=== PATIENT | female | born 1995 | race Caucasian/White ===

== ENCOUNTER 2019-03-15 09:42 | Emergency (ER) | payer OTHER, SELFPAY ==
[2019-03-15 09:50] VITALS: BP 130/83; PULSE 83; RESP 16; TEMP 36.3; O2SAT 100; BMI 23.1
--- NOTE | 2019-03-15 09:55 | ED.URI ---
HPI - URI/Sore Throat General Chief Complaint: Upper Respiratory Symptoms Stated Complaint: cold for a week,flu symptoms Time Seen by Provider: 03/15/19 09:48 Source: patient Mode of arrival: Ambulatory Limitations: no limitations History of Present Illness HPI Narrative: Patient is a 23-year-old female who is currently deployed in [place]. She states that on February 28 she flew is from [facility] to [facility] for couple days then flew to [place] as she at that time had some upper respiratory is like symptoms. She had over the relatively quickly. However over the last 8 days she started having facial pain of postnasal drip she does still have a mild cough. No fevers. Her symptoms do not seem to be improving. MD Complaint: nasal congestion and sinus pain Onset (ago): day(s) (8) Duration: intermittent Severity: mild Relieving factors: nothing Exacerbating factors: nothing Description of mucous: clear Related Data Allergies Allergy/AdvReac Type Severity Reaction Status Date / Time No Known Drug Allergies Allergy Verified 03/15/19 10:02 Review of Systems Review of Systems Narrative: GENERAL: Denies chills, fatigue, malaise, fever, sweats, travel HEENT: See HPI RESPIRATORY:+ cough see HPI Denies dyspnea,wheezing, hemoptysis, sputum. CARDIOVASCULAR: Denies chest pain, palpitations, orthopnea, edema GASTROINTESTINAL: Denies nausea, vomiting, abdominal pain, diarrhea, constipation, melena. : Denies dysuria, frequency, incontinence, hematuria, urinary retention, flank pain. MUSCULOSKELETAL: Denies weakness, joint pain, or bony pain SKIN: No rash, no erythema, no pruritus NEUROLOGIC: Denies weakness, dizziness, headache, numbness, change in speech, confusion PSYCHIATRIC: No concerning psychosocial issues. 12 point review of systems is negative except for those stated above and HPI Patient History Medical History Patient denies medical problems (Acute) Social History Smoking Status: Never smoker alcohol intake frequency: 0-2 drinks per day Exam Initial Vital Signs Initial Vital Signs: Vital Signs Temperature 97.4 F L 03/15/19 09:50 Pulse Rate 83 03/15/19 09:50 Respiratory Rate 16 03/15/19 09:50 Blood Pressure 130/83 03/15/19 09:50 Pulse Oximetry 100 03/15/19 09:50 GENERAL: Well-appearing, well-nourished and in no acute distress. HEENT: Head atraumatic,EOMI, pupils reactive CARDIOVASCULAR: Regular rate and rhythm without murmurs, rubs or gallops. RESPIRATORY: Breath sounds equal bilaterally, no wheezes rales or rhonchi. ABDOMEN: Soft, nontender. Normoactive bowel sounds all 4 quadrants. No guarding or rebound. EXTREMITIES: Normal range of motion, no clubbing or edema. Neurovascularly intact NEUROLOGICAL: Alert and oriented x4.Normal gait and speech. Cranial nerves II through XII grossly intact. SKIN: Warm, dry, no laceration, no petechiae, no rashes or lesions. Course Orders Ordered: ED Orders 03/15/19 10:03 XR chest 2V Stat 03/15/19 10:06 Influenza A & B (PCR) Stat Vital Signs Vital signs: Vital Signs - 8 hr 03/15/19 09:50 Temperature 97.4 F L Pulse Rate 83 Respiratory Rate 16 Blood Pressure 130/83 Pulse Oximetry 100 MDM - URI/Sore Throat Lab Data Labs: Lab Results 03/15/19 Range/Units 10:06 Influenza A (RT-PCR) Flu a negative (NEGATIVE) Influenza B (RT-PCR) Flu b negative (NEGATIVE) Imaging Data Chest x-ray: Radiologist's Impression: PROCEDURE: XR CHEST 2V INDICATIONS: cough TECHNIQUE: 2 views of the chest were acquired. COMPARISON: None. FINDINGS: Surgical changes and devices: None. Lungs and pleura: Lungs are clear. No pleural effusions or pneumothorax. Mediastinum: Mediastinal contours are normal. Heart size is normal. Bones and chest wall: No suspicious bony abnormalities. Soft tissues appear unremarkable. IMPRESSION: 1. No acute cardiopulmonary disease. Dictated by: Yuri Robins M.D. on 03/15/2019 at 10:30 MDM Narrative Medical decision making narrative: Patient overall does not have respiratory symptoms no cough or shortness of breath. It seems to be sinus and upper respiratory symptoms. She has had 2 long flights however symptoms are not consistent with pulmonary embolism. Flu is negative chest x-ray also negative this is likely other virus. She is from [place] not from [place] new strain of vega virus is unlikely. Discharge Plan Departure Patient Disposition: Home Clinical Impression: Upper respiratory infection Qualifiers: URI type: unspecified viral URI Qualified Code(s): J06.9 - Acute upper respiratory infection, unspecified Discharge Date/Time: 03/15/19 11:17 Instructions: DI for Viral Upper Respiratory Infection -- Adult Activity Restrictions/Additional Instructions: *You have been diagnosed with upper respiratory infection *What to do: At this time no indication for antibiotics. This is likely a viral syndrome which should resolve over the next few days. Continue supportive care hydrate and fever control *Continue to take medications as directed *Follow up with your primary care provider in 2-3 days *Return to ER if you should have increasing shortness of breath, chest pain fever controlled or any new, worsening or concerning symptoms Referrals: [facility] [Provider Group]
--- NOTE | 2019-03-15 10:03 | DI.RAD.S_ITS ---
PROCEDURE: XR CHEST 2V INDICATIONS: cough TECHNIQUE: 2 views of the chest were acquired. COMPARISON: None. FINDINGS: Surgical changes and devices: None. Lungs and pleura: Lungs are clear. No pleural effusions or pneumothorax. Mediastinum: Mediastinal contours are normal. Heart size is normal. Bones and chest wall: No suspicious bony abnormalities. Soft tissues appear unremarkable. IMPRESSION: 1. No acute cardiopulmonary disease. Dictated by: Yuri Robins M.D. on 03/15/2019 at 10:30 Approved by: Yuri Robins M.D. on 03/15/2019 at 10:31
[2019-03-15 11:05] LABS: Influenza A - CEPHEID Flu A NEGATIVE (NEGATIVE); Influenza B - CEPHEID Flu B NEGATIVE (NEGATIVE)
== END 2019-03-15 11:17 | disposition home or self-care (01) ==
PROVIDERS: Emergency Provider Emergency Medicine
DX: J06.9 Acute upper respiratory infection, unspecified (principal)
CPT/HCPCS: 71046; 87502; 99283